=== PATIENT | male | born 1980 | race Two or more races ===

== ENCOUNTER → 2024-03-22 15:25 | Outpatient (BNVA) | payer SELFPAY | PROVIDERS: Visit Provider Physician Assistant Medical | DX: Z02.79 Encounter for issue of other medical certificate (principal) ==

== ENCOUNTER 2025-01-11 20:36 | Emergency (ER) | payer MEDICAID, SELFPAY ==
[2025-01-11 20:53] VITALS: BP 122/83; PULSE 88; RESP 16; TEMP 36.4; O2SAT 98
--- NOTE | 2025-01-11 20:57 | ED_ITS ---
HPI - General Adult General Chief complaint: Urogenital-Male Stated complaint: ? something in penis area Time Seen by Provider: 01/11/25 22:24 Source: patient Mode of arrival: ambulatory Limitations: no limitations History of Present Illness ED Provider: HPI narrative: Patient comes here with small lesions on the head of the penis for last few days irritated after intercourse patient's partner does not have any lesions Related Data Previous Rx's ?Medication ?Instructions ?Recorded podofilox 0.5 % topical gel 1 appl topical BID 3 days #3.5 01/11/25 (Condylox) grams Allergies Allergy/AdvReac Type Severity Reaction Status Date / Time No Known Allergies Allergy Verified 01/11/25 20:59 Review of Systems 2 Review of Systems: Yes all other systems are reviewed and are negative [facility] Social History Social History Advance Directives: No Advance Directives Information Provided: No Do you have a plan to hurt others: No Plan Physical Exam ED Vital Signs: Vital Signs - 24 hr 01/11/25 20:53 01/11/25 23:12 Temperature 97.6 F 97.6 F Pulse Rate 88 88 Respiratory Rate 16 16 Blood Pressure 122/83 122/83 Pulse Oximetry 98 98 Oxygen Delivery Method Room Air Room Air BMI result Body Mass Index 30.0 Male genitals images: 2 1. Small flat papular lesions at the base of the glans>> HPV lesions Course Course Course Narrative: RME, this is a rapid medical exam performed by Jeb Thomas please refer to primary provider for complete H&P- 44-year-old male presents for evaluation of pain and irritation to the tip of his penis. He has pain mostly with intercourse and occasionally has cuts to the area. Plan for UA, CT NG and direct visualization Medical Decision Making Medical Decision Making MDM Narrative: Patient has small flat lesions on the glans pain is likely HPV warts will prescribe Condylox lotion Lab Data Labs: Lab Results 01/11/25 Range/Units 21:40 Urine Color Yellow Urine Appearance Clear Urine pH 6.0 (5.0-9.0) Ur Specific [place] >= 1.030 H (1.005-1.025) Urine Protein Trace (Neg-Trace) mg/dL Urine Glucose (UA) Negative (Negative) mg/dL Urine Ketones Trace (Negative) mg/dL Urine Blood Negative (Negative) Urine Nitrite Negative (Negative) Ur Leukocyte Esterase Negative (Negative) Urine RBC 0-2 (0-2) /HPF Urine WBC 0-5 (0-5) /HPF Ur Squamous Epith Cells 0-2 (0-2) /HPF Urine Bacteria None Seen (None Seen) Hyaline Casts 0-2 (0-2) /LPF Discharge Plan Discharge Clinical Impression: Genital warts Patient Disposition: Home, Self-Care Instructions: Genital Warts (ED) Additional Instructions: Likely have HPV related warts on your penis Use protection till heals completely Follow up with your PCP Apply Condylox gel twice daily for 3 days repeat in 4 days till lesions completely resolve Prescriptions: New podofilox [Condylox] 0.5 % gel 1 appl topical BID 3 Days Qty: 3.5 0RF Interventions: ED Discharge Assessment Last Done: 01/11/25 23:12 Discharge Date/Time: 01/11/25 23:12 Print Language: Irish
[2025-01-11 21:48] LABS: Appearance Urine Clear; Glucose Urine UA Negative (Negative); PH 6.0 (5.0-9.0); Specific Gravity - Urine >= 1.030 (1.005-1.025)
[2025-01-11 23:12] VITALS: BP 122/83; PULSE 88; RESP 16; TEMP 36.4; O2SAT 98
[2025-01-12 12:11] LABS: CT PCR Urine NOT DETECTED (Not Detect.); NG PCR Urine NOT DETECTED (Not Detect.)
== END 2025-01-11 23:12 | disposition home or self-care (01) ==
PROVIDERS: Physician Assistant; Emergency Provider Internal Medicine
DX: A63.0 Anogenital (venereal) warts (principal); L98.9 Disorder of the skin and subcutaneous tissue, unspecified
CPT/HCPCS: 36415; 81001; 87491; 87591; 99282; 99283